=== PATIENT | male | born 1955 | race Two or more races ===

== ENCOUNTER 2024-08-07 22:38 | Inpatient (IN) | payer MEDICARE, OTHER ==
[~2024-08-07] VITALS: Ht 170.2 cm; Wt 90.7 kg
[2024-08-07 23:49] LABS: APPEARANCE,URINE CLEAR (CLEAR); BILIRUBIN,URINE NEGATIVE (NEGATIVE); BLOOD, URINE 1+ Ery/uL (NEGATIVE); COLOR,URINE YELLOW (YELLOW); KETONES,URINE TRACE mg/dL (NEGATIVE); LEUKOCYTE ESTERASE ,URINE NEGATIVE (NEGATIVE); NITRITE, URINE NEGATIVE (NEGATIVE); PROTEIN,URINE NEGATIVE (NEGATIVE); UGLUCOSE NEGATIVE (NEGATIVE); UROBILINOGEN,URINE 0.2 EU/dL (0.2)
[2024-08-08] LABS: AMPHETAMINE, URINE NEGATIVE (NEGATIVE); BARBITURATE, URINE NEGATIVE (NEGATIVE); BENZODIAZEPINE, URINE NEGATIVE (NEGATIVE); CANNABINOID, URINE NEGATIVE (NEGATIVE); COCCAINE, URINE NEGATIVE (NEGATIVE); OPIATE, URINE NEGATIVE (NEGATIVE); PHENCYCLIDINE SCREEN,URINE NEGATIVE (NEGATIVE)
[2024-08-08 00:36] LABS: BASOPHILS % (AUTO) 0.7 % (0.0-2.0); EOSINOPHILS # (AUTO) 0.6 K/uL (0.0-0.7); EOSINOPHILS % (AUTO) 10.3 % (0.0-6.0); HEMATOCRIT 38 % (39-51); HEMOGLOBIN 12.8 g/dL (13.5-17.5); LYMPHOCYTES # (AUTO) 1.9 K/uL (0.8-4.8); LYMPHOCYTES % (AUTO) 32.8 % (20.0-44.0); MEAN CORPUSCULAR HEMOGLOBIN 34 PG (26.0-33.0); MEAN CORPUSCULAR HGB CONC 34 g/dl (31.0-36.0); MEAN CORPUSCULAR VOLUME 101 fL (80-96); MONOCYTES # (AUTO) 0.7 K/uL (0.1-1.30); MONOCYTES % (AUTO) 11.1 % (2.0-12.0); NEUTROPHILS # (AUTO) 2.7 K/uL (1.8-8.9); NEUTROPHILS % (AUTO) 45.1 % (43.0-81.0); PLATELET COUNT (AUTO) 128 K/uL (150-450); RED BLOOD CELL COUNT(AUTO) 3.72 MIL/uL (4.5-6.0); RED CELL DISTRIBUTION WIDTH 13.3 % (11.5-15.0); WHITE BLOOD COUNT (AUTO) 5.9 K/uL (4.3-11.0)
[2024-08-08 00:45] LABS: CALCIUM, SERUM 8.6 mg/dL (8.5-10.1); CARBON DIOXIDE 27 mmol/L (21-32); CHLORIDE 110 mmol/L (98-107); CREATININE 0.8 mg/dL (0.6-1.3); GLUCOSE 91 mg/dL (74-106); POTASSIUM 3.9 mmol/L (3.5-5.1); SODIUM SERUM 144 mmol/L (136-145); UREA NITROGEN, BLOOD 20 mg/dL (7-18)
[2024-08-08 00:52] LABS: ALANINE AMINOTRANSFERASE 15 U/L (12-78); ALBUMIN 2.9 g/dL (3.4-5.0); ALCOHOL, BLOOD < 3 mg/dL (0-10); ALKALINE PHOSPHATASE 61 U/L (46-116); ASPARTATE AMINOTRANSFERASE 14 U/L (15-37); BILIRUBIN,DIRECT 0.1 mg/dL (0.0-0.2); BILIRUBIN,TOTAL 0.5 mg/dL (0.2-1.0); TOTAL PROTEIN, SERUM 6.3 g/dL (6.4-8.2)
[2024-08-08 00:53] LABS: SALICYLATE 0.5 mg/dL (2.8-20.0)
[2024-08-08 00:54] LABS: ACETAMINOPHEN <10 ug/ml (10-30)
[2024-08-08 00:57] LABS: ADD URINE CULTURE NO; BACTERIA,URINE Few /HPF (None Seen); SQUAMOUS EPITHELIAL CELL,UR Few /HPF (None Seen)
[2024-08-08] MEDS ORDERED: ASCO500C18 PO (01:34)
[2024-08-08] MEDS ORDERED: FLUT1BLS14 INH (01:34)
[2024-08-08] MEDS ORDERED: DIVA500T54 PO (01:34)
[2024-08-08] MEDS ORDERED: LORA-259 PO (01:34)
[2024-08-08] MEDS ORDERED: MULT1CAP44 PO (01:34)
[2024-08-08] MEDS ORDERED: FERR325T28 PO (01:34)
[2024-08-08] MEDS ORDERED: TAMS-12 PO (01:35)
[2024-08-08] MEDS ORDERED: OLAN5TAB3 PO (01:35)
[2024-08-08 03:59] VITALS: BP 110/70; TEMP 97.8; O2SAT 100
[2024-08-08] MEDS ORDERED: TEMAZEPAM 7.5 MG CAPSULE PO PRN (04:00)
[2024-08-08] MEDS ORDERED: ACETAMINOPHEN 325 MG TABLET PO PRN (04:00)
[2024-08-08] MEDS ORDERED: LORAZEPAM 1 MG TABLET PO PRN (04:00)
[2024-08-08] MEDS ORDERED: MAGNESIUM HYDROXIDE 30 ML UDC PO PRN (04:00)
[2024-08-08] MEDS ORDERED: MAG HYDROX/AL HYDROX/SIMETH 30 ML UDC PO PRN (04:00)
[2024-08-08] MEDS: BLOOD SUGAR DIAGNOSTIC 1 EACH STRIP IN ONE (04:36)
[2024-08-08] MEDS ORDERED: MAGN400O6 PO (07:48)
[2024-08-08] MEDS ORDERED: ACET325T53 PO (07:48)
[2024-08-08] MEDS ORDERED: MULT-213 PO (07:48)
[2024-08-08] MEDS ORDERED: LACT10SO29 PO (07:48)
[2024-08-08] MEDS ORDERED: DIVA250T47 PO (07:48)
[2024-08-08] MEDS ORDERED: ASCO500T10 PO (07:48)
[2024-08-08 08:00] VITALS: BP 141/91; TEMP 97.8; O2SAT 96
[2024-08-08] MEDS: ASCORBIC ACID 500 MG TABLET PO SCH (15:52)
[2024-08-08] MEDS: FERROUS SULFATE (325 MG) 325 MG/TAB TABLET PO SCH (15:52)
[2024-08-08] MEDS: MULTIVIT W/MINERALS 1 TAB TABLET PO SCH (15:52)
[2024-08-08 16:00] VITALS: BP 134/82; TEMP 98.1; O2SAT 97
[2024-08-08 20:19] VITALS: BP 121/72; TEMP 98; O2SAT 97
[2024-08-08] MEDS: TAMSULOSIN 0.4 MG CAP.SR.24H PO SCH (22:11)
[2024-08-08] MEDS: OLANZAPINE ZYDIS 5 MG TAB.RAPDIS PO SCH (22:11)
[2024-08-09 08:00] VITALS: BP 106/85; TEMP 98.7; O2SAT 97
[2024-08-09 08:06] LABS: CREATININE 0.8 mg/dL (0.6-1.3)
[2024-08-09 08:09] LABS: ALBUMIN 3.6 g/dL (3.4-5.0); BILIRUBIN,TOTAL 0.5 mg/dL (0.2-1.0); CALCIUM, SERUM 9.3 mg/dL (8.5-10.1); CREATININE 0.8 mg/dL (0.6-1.3); POTASSIUM 4.1 mmol/L (3.5-5.1); TOTAL PROTEIN, SERUM 7.7 g/dL (6.4-8.2)
[2024-08-09 08:15] LABS: CHOLESTEROL 168 mg/dL (<200); HDL CHOLESTEROL 59 mg/dL (40-60); LDL 95 mg/dL (0-99); TRIGLYCERIDES 100 mg/dL (30-150)
[2024-08-09] MEDS: DIVALPROEX SODIUM 250 MG TABLET.DR PO SCH (08:22)
[2024-08-09] MEDS: FLUTICASONE/VILANTEROL 1 EACH BLST.W.DEV IH SCH (08:32)
[2024-08-09 16:00] VITALS: BP 128/82; TEMP 97.8; O2SAT 98
[2024-08-09 20:00] VITALS: BP 117/93; TEMP 98.1; O2SAT 97
[2024-08-09 20:40] VITALS: BP 117/93; TEMP 98.1; O2SAT 98
[2024-08-10 08:00] VITALS: BP 110/81; TEMP 98; O2SAT 96
[2024-08-10] MEDS: CLOTRIMAZOLE/BETAMETASONE DIPROPIONATE 15 GM TUBE TP SCH (12:10)
[2024-08-10 16:00] VITALS: BP 112/76; TEMP 98.6; O2SAT 97
[2024-08-10 20:03] VITALS: BP 127/85; TEMP 98.4; O2SAT 98
[2024-08-11 08:00] VITALS: BP 107/78; TEMP 97.9; O2SAT 98
[2024-08-11] MEDS: LORAZEPAM 0.5 MG TABLET PO PRN (15:40)
[2024-08-11 16:00] VITALS: BP 143/78; TEMP 97.9; O2SAT 97
[2024-08-11 20:00] VITALS: BP 120/78; TEMP 98; O2SAT 98
[2024-08-11 21:08] VITALS: BP 120/78; TEMP 98; O2SAT 98
[2024-08-11] MEDS: TEMAZEPAM 7.5 MG CAPSULE PO PRN (21:18)
[2024-08-12 08:00] VITALS: BP 104/85; TEMP 97.6; O2SAT 96
[2024-08-12] MEDS: OLANZAPINE ZYDIS 5 MG TAB.RAPDIS PO SCH (08:30)
[2024-08-12 16:00] VITALS: BP 120/84; TEMP 98.3; O2SAT 97
[2024-08-12 20:00] VITALS: BP 104/67; TEMP 98.2; O2SAT 98
[2024-08-12 20:46] VITALS: BP 104/67; TEMP 98.2; O2SAT 99
[2024-08-13 08:00] VITALS: BP 123/85; TEMP 98.1; O2SAT 98
[2024-08-13 15:24] VITALS: BP 125/75; TEMP 97.9; O2SAT 96
[2024-08-13 20:14] VITALS: BP 128/77; TEMP 98.3; O2SAT 98
[2024-08-14 08:00] VITALS: BP 115/80; TEMP 97.8; O2SAT 96
== END 2024-08-14 13:49 | DRG 885 ==
LOC: ER 22:40 → GPS 08-08 03:24
PROVIDERS: ADMIT Psychiatry & Neurology Psychiatry; ATTEND Internal Medicine
DX: F25.0 Schizoaffective disorder, bipolar type (principal); F03.93 Unspecified dementia, unspecified severity, with mood disturbance; F03.92 Unspecified dementia, unspecified severity, with psychotic disturbance; F03.94 Unspecified dementia, unspecified severity, with anxiety; E44.0 Moderate protein-calorie malnutrition; R45.851 Suicidal ideations; F29 Unspecified psychosis not due to a substance or known physiological condition; F03.90 Unspecified dementia, unspecified severity, without behavioral disturbance, psychotic disturbance, mood disturbance, and anxiety; I10 Essential (primary) hypertension; E03.9 Hypothyroidism, unspecified; Z79.899 Other long term (current) drug therapy; B35.1 Tinea unguium; B35.3 Tinea pedis; D50.9 Iron deficiency anemia, unspecified; Z79.51 Long term (current) use of inhaled steroids; N40.0 Benign prostatic hyperplasia without lower urinary tract symptoms; E88.09 Other disorders of plasma-protein metabolism, not elsewhere classified; F32.A Depression, unspecified
CPT/HCPCS: 36415; 80048-TC; 80053-TC; 80061-TC; 80076-TC; 81001; 82565-TC; 82962-TC; 85025-TC; 87081-TC; G0480